=== PATIENT | female | born 1955 | race African-American/Black ===

== ENCOUNTER 2020-05-10 10:13 | Observation (INO) ==
[2020-05-10 11:10] LABS: Apearance,Urine CLEAR (Clear); Bilirubin,Urine Negative (Negative); Blood, Urine Negative (Negative); Glucose,Urine (UA) 150 mg/dL (Negative); Hyaline Casts,Urine 4 /LPF (0-3); Ketones,Urine Negative (Negative); Mucus,Urine Occasional /LPF (Occasional); Nitrite,Urine Negative (Negative); Protein,Urine 100 MG/DL; RBC,Urine 3 /HPF (0-4); Squamous Epithelial Cell,Urine Occasional /HPF (0-10); Urine Color Yellow (Yellow); Urine Specific Gravity 1.017 (1.001-1.035); Urine Urobilinogen < 2.0 EU/DL (0.2-1.0); WBC,Urine 1 /HPF (0-6)
[2020-05-10 11:38] LABS: Basophils # 0.1 10*3/uL (0.0-0.2); Basophils % 0.9 % (0.0-0.8); Eosinophils # 0.1 10*3/uL (0.0-0.87); Eosinophils % 2.5 % (0.00-10.9); Hematocrit 41.5 VOL% (35.7-47.0); Hemoglobin 13.1 GM/DL (12.0-16.0); Immature Granulocytes % 0.2 %; Immature Granulocytes Absolute 0.01 #; Lymphocytes # 1.9 10*3/uL (1.4-4.0); Lymphocytes % 34.1 % (21.3-54.2); Mean Corpuscular HGB Conc 31.6 GM/DL (32-36); Mean Platelet Volume 11.9 FL (9.6-12.0); Monocytes % 10.5 % (1.7-12.7); Neutrophils % 51.8 % (38.7-73.9); Platelet Count 242 T/CUMM (130-400); Red Blood Count 4.51 MC/CUMM (3.8-5.5); Red Cell Distribution Width 13.4 % (9.3-17.3); White Blood Count 5.5 T/CUMM (4-12)
[2020-05-10 11:56] LABS: Bilirubin,Total 0.4 MG/DL (0.2-1.0); Calcium 9.4 MG/DL (8.5-10.1); Osmolality,Calculated 284.5 MOS/KG (273-304); Total Protein 7.3 G/DL (6.4-8.3)
[2020-05-10 12:03] LABS: Hypochromasia 1+; Microcytosis 1+; Platelet Estimate Adequate
[2020-05-10 13:50] LABS: INR 0.9; PT Patient Result 10.1 SECS (9.8-11.9); Partial Thromboplastin Time 26.7 SECS (23.9-33.8)
[2020-05-10 13:59] LABS: Troponin I 0.146 NG/ML (0.00-0.045)
[2020-05-10] MEDS ORDERED: hydrALAZINE 20 MG/1 ML VIAL IV STA (15:00)
[2020-05-10] MEDS ORDERED: hydrALAZINE 25 MG TABLET ONE (15:12)
[2020-05-10] MEDS ORDERED: DEXTROSE 50% 25 GM/50 ML VIAL IV PRN (15:23)
[2020-05-10] MEDS ORDERED: ONDANSETRON 4 MG/2 ML VIAL IV PRN (15:23)
[2020-05-10] MEDS ORDERED: LACTULOSE 20 GM/30 ML UDCUP PO PRN (15:23)
[2020-05-10] MEDS ORDERED: hydrALAZINE 20 MG/1 ML VIAL IV PRN (15:23)
[2020-05-10] MEDS ORDERED: GLUCAGON 1 MG VIAL IM PRN (15:23)
[2020-05-10] MEDS ORDERED: hydrALAZINE 25 MG TABLET PO STA (15:25)
[2020-05-10] MEDS: INSULIN LISPRO 100 UNIT/ML SUBCUT SCH ×2 (16:59→21:02)
[2020-05-10 17:22] LABS: Risk Ratio 2.83; VLDL CHOLESTEROL 22.2 MG/DL
[2020-05-10] MEDS: cloNIDine 0.1 MG TABLET PO PRN (18:05)
[2020-05-10] MEDS ORDERED: carvediloL 25 MG TABLET PO SCH (21:00)
[2020-05-10] MEDS ORDERED: INSULIN GLARGINE 100 UNIT/ML SUBCUT SCH (21:00)
[2020-05-10] MEDS: ENOXAPARIN 40 MG/0.4 ML SYRINGE SUBCUT SCH (21:03)
[2020-05-11 05:13] LABS: Basophils # 0.1 10*3/uL (0.0-0.2); Basophils % 0.7 % (0.0-0.8); Eosinophils # 0.1 10*3/uL (0.0-0.87); Eosinophils % 1.9 % (0.00-10.9); Hematocrit 39.8 VOL% (35.7-47.0); Hemoglobin 12.8 GM/DL (12.0-16.0); Immature Granulocytes % 0.3 %; Immature Granulocytes Absolute 0.02 #; Lymphocytes # 3.1 10*3/uL (1.4-4.0); Lymphocytes % 42.3 % (21.3-54.2); Mean Corpuscular HGB Conc 32.2 GM/DL (32-36); Mean Platelet Volume 11.8 FL (9.6-12.0); Monocytes % 10.7 % (1.7-12.7); Neutrophils % 44.1 % (38.7-73.9); Platelet Count 257 T/CUMM (130-400); Red Blood Count 4.42 MC/CUMM (3.8-5.5); Red Cell Distribution Width 13.2 % (9.3-17.3); White Blood Count 7.2 T/CUMM (4-12)
[2020-05-11 05:35] LABS: Albumin 2.7 G/DL (3.4-5.0); Bilirubin,Total 1.4 MG/DL (0.2-1.0); Calcium 8.7 MG/DL (8.5-10.1); Total Protein 6.5 G/DL (6.4-8.3)
[2020-05-11] MEDS: INSULIN LISPRO 100 UNIT/ML SUBCUT SCH ×4 (07:31→21:08)
[2020-05-11] MEDS: ASPIRIN 325 MG TABLET PO SCH (08:02)
[2020-05-11] MEDS: ATORVASTATIN 80 MG TABLET PO SCH (08:02)
[2020-05-11] MEDS: PANTOPRAZOLE 40 MG TABLET PO SCH (08:02)
[2020-05-11] MEDS ORDERED: amLODIPine 10 MG TABLET PO SCH (09:00)
[2020-05-11] MEDS ORDERED: carvediloL 12.5 MG TABLET PO SCH (10:30)
[2020-05-11] MEDS: amLODIPine 10 MG TABLET PO SCH (11:08)
[2020-05-11] MEDS: cloNIDine 0.1 MG TABLET PO PRN (11:59)
[2020-05-11] MEDS: carvediloL 25 MG TABLET PO SCH (17:22)
[2020-05-11] MEDS ORDERED: INSULIN GLARGINE 100 UNIT/ML SUBCUT SCH (21:00)
[2020-05-11] MEDS: ENOXAPARIN 40 MG/0.4 ML SYRINGE SUBCUT SCH (21:08)
[2020-05-12 06:06] LABS: Calcium 8.5 MG/DL (8.5-10.1); Osmolality,Calculated 293.3 MOS/KG (273-304)
[2020-05-12] MEDS: INSULIN LISPRO 100 UNIT/ML SUBCUT SCH ×2 (08:05→11:30)
[2020-05-12] MEDS: carvediloL 25 MG TABLET PO SCH (08:50)
[2020-05-12] MEDS: ATORVASTATIN 80 MG TABLET PO SCH (09:10)
[2020-05-12] MEDS: PANTOPRAZOLE 40 MG TABLET PO SCH (09:10)
[2020-05-12] MEDS: ASPIRIN 325 MG TABLET PO SCH (09:10)
[2020-05-12] MEDS: amLODIPine 10 MG TABLET PO SCH (09:11)
[2020-05-12 11:34] VITALS: BP 204/91
== END 2020-05-12 14:28 | disposition home health service (06) ==
LOC: N.EDINP 10:13 → N.ED 10:13 → N.EDINP 20:13 → N.TELES 21:00
PROVIDERS: ADMIT Internal Medicine; ATTEND Internal Medicine